=== PATIENT | male | born 1985 | race Caucasian/White ===

== ENCOUNTER 2017-07-07 10:26 | Emergency (ER) | payer SELFPAY ==
[2017-07-07 10:32] VITALS: BP 153/88; PULSE 72; TEMP 98.1; BMI 29.2
--- NOTE | 2017-07-07 11:26 | PDOC ---
History of Present Illness - General Chief Complaint: Wound Stated Complaint: ABSCESS BOIL Time Seen by Provider: 07/07/17 11:17 - History of Present Illness Initial Comments: 07/07/17 11:22 Patient is a 32-year-old male with no past medical history who presents to the emergency department today, complaining of a bite on his right lower leg. Patient states that it is now painful and red. He states that he got a bug bite approximately 1 week ago. He has been taking penicillin at home with no relief. Patient is afebrile and denies fevers at home. Denies weakness and numbness to the leg. Admits to active drainage from the site. Past History - Travel Traveled outside of the country in the last 30 days: No Close contact w/someone who was outside of country & ill: No - Past Medical History Allergies/Adverse Reactions: Allergies Allergy/AdvReac Type Severity Reaction Status Date / Time No Known Allergies Allergy Verified 07/07/17 10:28 Home Medications: Ambulatory Orders Cephalexin Monohydrate [Keflex -] 500 mg PO BID #14 capsule 07/07/17 Sulfamethoxazole/Trimethoprim [Bactrim Ds -] 1 tab PO BID #14 tablet 07/07/17 CVA: No COPD: No DVT: No Dementia: No Diabetes: No - Immunization History Immunization Up to Date: Yes - Suicide/Smoking/Psychosocial Hx Smoking History: Never smoked Have you smoked in the past 12 months: No Information on smoking cessation initiated: No Hx Alcohol Use: No Drug/Substance Use Hx: No Substance Use Type: None Review of Systems - Review of Systems Able to Perform ROS?: Yes Comments:: 07/07/17 11:28 CONSTITUTIONAL: Absent: fever, chills, diaphoresis, generalized weakness, malaise, loss of appetite HEENT: Absent: rhinorrhea, nasal congestion, throat pain, throat swelling, difficulty swallowing, mouth swelling, ear pain, eye pain, visual Changes CARDIOVASCULAR: Absent: chest pain, loss of consciousness, palpitations, irregular heart rate, peripheral edema RESPIRATORY: Absent: cough, shortness of breath, dyspnea with exertion, orthopnea, wheezing, stridor, hemoptysis GASTROINTESTINAL: Absent: abdominal pain, abdominal distension, nausea, vomiting, diarrhea, constipation, melena, hematochezia GENITOURINARY: Absent: dysuria, frequency, urgency, hesitancy, hematuria, flank pain, genital pain MUSCULOSKELETAL: Absent: myalgia, arthralgia, joint swelling SKIN: Present: redness of R escamilla surrounding the bite. Absent: rash, itching, pallor HEMATOLOGIC/IMMUNOLOGIC: Absent: easy bleeding, easy bruising, lymphadenopathy, frequent infections ENDOCRINE: Absent: unexplained weight gain, unexplained weight loss, heat intolerance, cold intolerance NEUROLOGIC: Absent: headache, focal weakness or paresthesias, dizziness, unsteady gait, seizure, mental status changes, bladder or bowel incontinence PSYCHIATRIC: Absent: anxiety, depression, suicidal or homicidal ideation, hallucinations. Is the patient limited Croatian proficient: No *Physical Exam - Vital Signs Last Vital Signs Temp Pulse Resp BP Pulse Ox 98.1 F 72 16 153/88 99 07/07/17 10:29 07/07/17 10:29 07/07/17 10:29 07/07/17 10:29 07/07/17 10:29 - Physical Exam Comments: 07/07/17 11:30 GENERAL: The patient is awake, alert, and fully oriented, in no acute distress. Pt. is afebrile HEAD: Normal with no signs of trauma. EYES: Pupils equal, round and reactive to light, extraocular movements intact, sclera anicteric, conjunctiva clear. EXTREMITIES: Normal range of motion, no edema. NEUROLOGICAL: Normal speech, normal gait. PSYCH: Normal mood, normal affect. SKIN: R escamilla with central lesion with active serous drainage at this time. 3cm surrounding circular cellulitis. Warm to the touch. No target lesionWarm, Dry, normal turgor. Medical Decision Making - Medical Decision Making 07/07/17 11:33 Pt. is a 32 y/o M with no PMH who presents for evaluation of a wound on his R lower leg. There is a central lesion where the inital bite appears to be. It is now white and actively draining serous fluid. There is surrounding cellulitis approximately 3cm around the bite. Pt. is afebrile in the department and feels well. Will take a wound culture at this time. Area was marked and pt. started on bactrim and keflex. Pt. told to f/u tomorrow for wound check. Pt. discharged home at this time. *DC/Admit/Observation/Transfer Diagnosis at time of Disposition: Cellulitis of right lower leg - Discharge Dispostion Disposition: HOME Condition at time of disposition: Fair Admit: No - Prescriptions Prescriptions: Cephalexin Monohydrate [Keflex -] 500 mg PO BID #14 capsule Sulfamethoxazole/Trimethoprim [Bactrim Ds -] 1 tab PO BID #14 tablet - Referrals Referrals: Alan Miller MD [Staff Physician] - - Patient Instructions Printed Discharge Instructions: DI for Cellulitis -- Adult Additional Instructions: You have a skin infection or cellulitis of your right lower leg. The area was marked today with a pen. If the redness extends outside of the pen please return to the emergency department. Your prescribed new antibiotics. Your prescribed Bactrim and Keflex. Please take both of them as prescribed. You may use Tylenol or ibuprofen as needed for pain. Please use a warm compress on the leg for 20 minutes at a time to help with healing. Keep your leg elevated when resting. Please return to the emergency department tomorrow to have your wound checked. Return to the emergency department if the redness on your leg gets worse, if he develops fevers, chills, nausea, vomiting or have any changes in your symptoms. Usted tiene gurpreet infeccin en la piel o celulitis en la pierna derecha. El ely fue marcada hoy con un bolgrafo. Si el enrojecimiento se extiende fuera del valle, regrese al departamento de emergencia. [place] nuevos antibiticos recetados. Tavera prescrito Bactrim y Keflex. Por favor, tome los dos segn lo prescrito. Puede usar Tylenol o ibuprofeno segn sea necesario para el dolor. Use gurpreet compresa tibia en la pierna leslie 20 minutos a la vez para ayudar con la curacin. Mantenga tavera pierna elevada cuando descansa. Por favor regrese al departamento de emergencias maana para que le revisen tavera herida. Regrese al departamento de emergencias si el enrojecimiento de tavera pierna empeora , si desarrolla fiebre, escalofros, nuseas, vmitos o si presenta algn cambio en [place] sntomas. Print Language: TURKMEN - Post Discharge Activity Forms/Work/School Notes: Back to Work
== END 2017-07-07 12:29 | disposition home or self-care (01) ==
LOC: JERFT 10:26
DX: L03.115 Cellulitis of right lower limb (principal); S80.861A Insect bite (nonvenomous), right lower leg, initial encounter; W57.XXXA Bitten or stung by nonvenomous insect and other nonvenomous arthropods, initial encounter; Y93.89 Activity, other specified; Y92.89 Other specified places as the place of occurrence of the external cause; Y99.8 Other external cause status
CPT/HCPCS: 87070; 87186; 87205; 99281-25

== ENCOUNTER 2017-07-08 14:13 | Emergency (ER) | payer SELFPAY ==
[2017-07-08 14:17] VITALS: BP 145/81; PULSE 81; TEMP 98; BMI 31.1
--- NOTE | 2017-07-08 15:10 | PDOC ---
History of Present Illness - General Chief Complaint: Revisit,Wound Recheck Stated Complaint: Wound check leg Time Seen by Provider: 07/08/17 14:26 History Source: Patient Exam Limitations: No Limitations - History of Present Illness Initial Comments: 07/08/17 14:06 Pt. is a 32 y/o male who presents for a wound check of his R lower leg. Pt. was seen yesterday for cellulitis to the R lower leg. He states he has been taking his antibiotics as prescribed. He states that he accidentally washed off the markings from yesterday. Denies fevers, chills, n/v/d, Past History - Travel Traveled outside of the country in the last 30 days: No Close contact w/someone who was outside of country & ill: No - Past Medical History Allergies/Adverse Reactions: Allergies Allergy/AdvReac Type Severity Reaction Status Date / Time No Known Allergies Allergy Verified 07/08/17 14:17 Home Medications: Ambulatory Orders Cephalexin Monohydrate [Keflex -] 500 mg PO BID #14 capsule 07/07/17 Sulfamethoxazole/Trimethoprim [Bactrim Ds -] 1 tab PO BID #14 tablet 07/07/17 CVA: No COPD: No DVT: No Dementia: No Diabetes: No Other medical history: denies - Immunization History Immunization Up to Date: Yes - Suicide/Smoking/Psychosocial Hx Smoking History: Never smoked Have you smoked in the past 12 months: No Information on smoking cessation initiated: No Hx Alcohol Use: No Drug/Substance Use Hx: No Substance Use Type: None Review of Systems - Review of Systems Constitutional: No: Chills, Fever, Weakness Integumentary: Yes: Erythema, Other (cellulitis to the r lower leg) Neurological: No: Numbness, Paresthesia, Tingling, Tremors *Physical Exam - Vital Signs Last Vital Signs Temp Pulse Resp BP Pulse Ox 98 F 81 18 145/81 99 07/08/17 14:15 07/08/17 14:15 07/08/17 14:15 07/08/17 14:15 07/08/17 14:15 - Physical Exam General Appearance: Yes: Nourished, Appropriately Dressed. No: Apparent Distress Extremity: positive: Normal Capillary Refill, Normal Inspection, Normal Range of Motion Integumentary: positive: Dry, Warm, Other (Open draining abscess, purulent matter expressed. Cellulitic changes appear to be less red than yesterday, however it is difficult to tell because he washed off the pen. Cellulitis surrounding the draining wound approximatley 3 cm. 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 Compared to yesterday the wound is draining and appears smaller. The surrounding cellulitis appears unchanged. Patient is instructed to continue his antibiotics as prescribed. Patient has an appointment to see Dr. Oakley in the clinic tomorrow; he is instructed to keep this appointment. Patient understands that if the redness gets worse, he is to return to the emergency department. The area was re-marked today. If patient cannot see Dr. Gee he is to return to the emergency department for a wound check. Given strict return precautions *DC/Admit/Observation/Transfer Diagnosis at time of Disposition: Cellulitis of right lower leg, Visit for wound check - Discharge Dispostion Disposition: HOME Condition at time of disposition: Stable Admit: No - Referrals Referrals: Alan Miller MD [Staff Physician] - - Patient Instructions Printed Discharge Instructions: DI for Cellulitis -- Adult Additional Instructions: You were prescribed Bactrim and Keflex yesterday. Please continue taking this medication. Take 1 bactrim and 1 keflex with breakfast. Also take 1 bactrim and 1 keflex with dinner. Finish the entire bottle of medication. Please keep your appointment with Dr. Padilla tomorrow so he can evaluate the wound. Do not wash the pen off of your leg marking the redness. Return to the ED in 2 days to have your wound checked. Return to the ED if the redness goes outside of the lines that were drawn, if you have fevers, chills, nausea, vomiting or have any changes in your symptoms. Le recetaron Bactrim y Keflex geovanna. Por favor, contine tomando macy medicamento. [place] 1 bactrim y 1 keflex con el desayuno. Tambin tome 1 bactrim y 1 keflex con la kev. Termine el frasco completo de medicamento. Por favor, mantenga heart jennifer con el Dr. Randy charles para que pueda evaluar la herida. No lave la pluma de heart pierna marcando el enrojecimiento. Vuelve al servicio de urgencias en 2 barajas para que te revisen la herida. Regrese al departamento de emergencias si el enrojecimiento est fuera de las l neas que se tomaron, si tiene fiebre, escalofros, nuseas, vmitos o algn cambio en [place] sntomas. . Print Language: GREEK - Post Discharge Activity Forms/Work/School Notes: Back to Work
--- NOTE | 2017-07-09 07:51 | PDOC ---
Patient Follow-up (Call Back) - Post ED Follow - Up Condition at time of discharge: Stable Disposition at time of original discharge: HOME Reason for Call Back: Abnwl. Microbiology (Wound culture preliminary shows presumptive MSSA. Patient currently on Keflex and Bactrim which is adequate coverage for the above. We will await final.)
== END 2017-07-08 15:54 | disposition home or self-care (01) ==
LOC: JERFT 14:13
DX: L03.115 Cellulitis of right lower limb (principal)
CPT/HCPCS: 99281-25